=== PATIENT | male | born 1935 | race Caucasian/White ===

== ENCOUNTER → 2016-12-01 16:13 | Outpatient (CLI) | payer MEDICARE ==
[2015-08-28 12:55] VITALS: BMI 31.3
[~2016-12-01 16:13] MED LIST: ASCORBIC ACID500 MG PO; ASPIRIN EC81 M1 PO; CALCIUM 600+D T1 TA1 PO; FLOMAX0.4 MG PO; LEVAQUIN500 MG PO; MYSOLINE 50 MG50 MG PO; PRILOSEC10 MG PO; PRILOSEC20 MG PO; PROBIOTIC1 EAC1 PO; PROSCAR5 MG PO; STOOL SOFTENER100 M1 PO; VIC-FORTE CAPSUL1 MG PO
[2016-12-01 17:18] LABS: BASOPHILS 0.2 % (0-2); EOSINOPHILS 1.3 % (0-7); HEMATOCRIT 49.1 % (42.0-54.0); HEMOGLOBIN 16.6 g/dL (13.5-17.5); IMMATURE GRANULOCYTES 0.4 % (0-5); LYMPHOCYTES 14.3 % (15-50); MCH 32.2 pg (26.0-34.0); MCHC 33.8 g/dL (31.0-37.0); MCV 95.2 fL (80.0-100.0); MEAN PLATELET VOLUME 10.8 fL (7.4-10.4); MONOCYTES 11.5 % (2-11); NEUTROPHILS 72.3 % (40-80); RBC 5.16 10x6/uL (4.20-6.10); RDW 14.2 % (11.5-14.5); WBC 11.1 10x3/uL (4.8-10.8)
[2016-12-01 17:28] LABS: ALBUMIN 3.9 g/dL (3.4-5.0); ANION GAP 12.9 mmol/L (8-16); BILIRUBIN - DIRECT 0.29 mg/dL (0.00-0.30); BILIRUBIN - INDIRECT 1.36 mg/dL (0.00-1.00); BILIRUBIN - TOTAL 1.65 mg/dL (0.2-1.3); CALCIUM 9.8 mg/dL (8.5-10.1); CARBON DIOXIDE 31.1 mmol/L (21.0-32.0); CREATININE - SERUM 1.2 mg/dL (0.6-1.3); PROTEIN - SERUM 8.2 g/dL (6.4-8.2)
[2016-12-01 17:48] LABS: PLATELET COUNT 290 10x3/uL (130-400)
== END | disposition home or self-care (01) ==
LOC: D.LABREF 16:13
PROVIDERS: Nurse Practitioner Acute Care
DX: R10.13 Epigastric pain (principal); K21.0 Gastro-esophageal reflux disease with esophagitis; K57.30 Diverticulosis of large intestine without perforation or abscess without bleeding; K64.8 Other hemorrhoids; Z80.0 Family history of malignant neoplasm of digestive organs

== ENCOUNTER 2017-12-31 08:19 | Day surgery (SDC) | payer MEDICARE ==
[~2017-12-31] VITALS: Ht 190.5 cm; Wt 108.9 kg
[2017-12-31 08:38] LABS: BASOPHILS 0.1 % (0-2); EOSINOPHILS 1.9 % (0-7); HEMOGLOBIN 16.3 g/dL (13.5-17.5); IMMATURE GRANULOCYTES 0.2 % (0-5); LYMPHOCYTES 23.7 % (15-50); MCH 32.4 pg (26.0-34.0); MCHC 34.7 g/dL (31.0-37.0); MCV 93.4 fL (80.0-100.0); MEAN PLATELET VOLUME 9.6 fL (7.4-10.4); MONOCYTES 9.8 % (2-11); NEUTROPHILS 64.3 % (40-80); PLATELET COUNT 241 10x3/uL (130-400); RBC 5.03 10x6/uL (4.20-6.10); RDW 13.6 % (11.5-14.5); WBC 8.1 10x3/uL (4.8-10.8)
[2017-12-31 08:48] LABS: ANION GAP 9.2 mmol/L (8-16); CALCIUM 9.3 mg/dL (8.5-10.1); CARBON DIOXIDE 31.1 mmol/L (21.0-32.0); CREATININE - SERUM 1.1 mg/dL (0.6-1.3)
[2017-12-31 08:50] LABS: POTASSIUM - SERUM 4.3 mmol/L (3.5-5.1)
[2017-12-31 09:23] VITALS: BP 134/93; Ht 190.5 cm; Wt 108.9 kg
[2017-12-31 09:25] LABS: INR 0.99 (0.85-1.17); PROTIME 12.7 SECONDS (11.6-15.0)
[2017-12-31 09:32] LABS: ALBUMIN 3.9 g/dL (3.4-5.0); BILIRUBIN - DIRECT 0.21 mg/dL (0.00-0.30); BILIRUBIN - INDIRECT 1.33 mg/dL (0.00-1.00); BILIRUBIN - TOTAL 1.54 mg/dL (0.2-1.3); PROTEIN - SERUM 7.6 g/dL (6.4-8.2)
== END 2017-12-31 14:35 | disposition home or self-care (01) ==
LOC: D.OPS 08:19
PROVIDERS: Anesthesiology; Internal Medicine Gastroenterology
DX: K80.50 Calculus of bile duct without cholangitis or cholecystitis without obstruction (principal); Z01.812 Encounter for preprocedural laboratory examination

== ENCOUNTER 2019-06-17 09:00 | Day surgery (SDC) | payer MEDICARE ==
[2019-06-16 14:00] LABS: BASOPHILS 0.2 % (0-2); EOSINOPHILS 2.2 % (0-7); HEMATOCRIT 47.3 % (42.0-54.0); HEMOGLOBIN 15.9 g/dL (13.5-17.5); IMMATURE GRANULOCYTES 0.2 % (0-5); LYMPHOCYTES 29.8 % (15-50); MCH 31.4 pg (26.0-34.0); MCHC 33.6 g/dL (31.0-37.0); MCV 93.5 fL (80.0-100.0); MEAN PLATELET VOLUME 9.7 fL (7.4-10.4); NEUTROPHILS 58.6 % (40-80); PLATELET COUNT 257 10x3/uL (130-400); RBC 5.06 10x6/uL (4.20-6.10); RDW 13.6 % (11.5-14.5); WBC 9.4 10x3/uL (4.8-10.8)
[2019-06-16 14:05] LABS: CALC OSMOLALITY 281 mosm/kg (275-300); CALCIUM 9.7 mg/dL (8.5-10.1); CARBON DIOXIDE 28.6 mmol/L (21.0-32.0); CHLORIDE - SERUM 105 mmol/L (98-107); CREATININE - SERUM 0.9 mg/dL (0.6-1.3); GLUCOSE 101 mg/dL (74-106); POTASSIUM - SERUM 4.2 mmol/L (3.5-5.1); SODIUM 141 mmol/L (136-145); UREA NITROGEN 14 mg/dL (7-18); eGFR NON AFRICAN AMERICAN 85 mL/min (90-120)
[~2019-06-17] VITALS: Ht 190.5 cm; Wt 110.7 kg
[~2019-06-17 09:00] MED LIST changes: +CITRACAL + D E1 EACH PO; +FLUTICASONE PRO16 GM NASAL; +KENALOG 0.1 % 115 GM TOPICAL; +MYSOLINE 50 MG50 MG; -MYSOLINE 50 MG50 MG PO; +OMEPRAZOLE20 M1 PO; -PRILOSEC20 MG PO
[2019-06-17 09:33] VITALS: BP 167/91; Ht 190.5 cm; Wt 110.7 kg
--- NOTE | 2019-06-17 13:46 | NUR ---
1330 IV REMOVED WITH [facility] INTACT. ALL DC INSTRUCTIONS GIVEN. VOICES UNDERSTANDING. TAKEN OUT VIA W/C TO CAR WITH . ADVISED TO CALL OR COME BACK IF ANY PROBLEMS.
--- NOTE | 2019-06-17 15:52 | OP ---
PATIENT NAME: SERGIO SOLIS MEDICAL RECORD: [id number] :34 LOCATION:D.OPS ADMISSION DATE: SURGEON: SERGIO ROBERTS MD DATE OF OPERATION: 06/17/2019 SURGEON: Sergio Roberts MD ANESTHESIA: TIVA by David Sharp MD DIAGNOSES: Obstructive benign prostatic hyperplasia with IPSS of 16, quality of life score is 5, on finasteride and tamsulosin. PROCEDURE: UroLift times 6. FINDINGS: Bilateral long obstructive lateral lobes. No median lobe. Single ureteral orifices. Heavily trabeculated bladder with cellules. No bladder tumors. ESTIMATED BLOOD LOSS: Minimal. CLINICAL HISTORY: This is an 83-year-old male whom I first saw on 2016 for obstructive BPH and an elevated PSA. His PSA was 7.4 in May 2014. In 2012, he had a prostate biopsy by Dr. Shin of [place]. The pathology was benign. His last PSA 3.8 on 11/20/2017. He has been on finasteride and tamsulosin since 2016. He has nocturia times 3-4 with daytime urinary frequency every 1 to 2 hours. He has urge incontinence for which he uses pads. He has postvoid dribbling. IPSS score is 16 and quality of life score is 5. He wishes to have the UroLift procedure done. The patient was given IV sedation. 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 He is not allergic to any medications. DESCRIPTION OF PROCEDURE: He was placed into lithotomy position and prepped and draped. The UroLift scope was introduced and the findings are as outlined above. A 1.5 cm distal to the bladder neck at the anterolateral sulcus, one unit was placed on each side. Then, at the level of the verumontanum, one unit was placed on each side at the level of the anterolateral sulcus. Distal left tissue in the mid prostatic urethra, which caused an obstruction. In the mid prostatic urethra at the mid-height, in the anterior to posterior direction, we placed one unit on each side. This resulted in a nice wide open passage throughout the long prostatic urethra. The bladder was left partly full for a voiding trial today. I will see the patient in followup in 2 weeks' time. TRANSINT:[id number] Voice Confirmation ID: [id number] DOCUMENT ID: [id number] SERGIO ROBERTS MD at 1552 CC: [id number] DICTATION DATE: 06/17/19 1152 BOX MAKER: 06/17/19 1310 [facility] 06/17/19 [place] [id number] [place] [id number]
== END 2019-06-17 13:30 | disposition home or self-care (01) ==
LOC: D.OPS 09:00 → D.PAN 10:30 → D.OPS 10:30 → D.PAN 10:55 → D.OPS 10:55 → D.PAN 12:00 → D.OPS 13:30
PROVIDERS: Anesthesiology; ATTEND Urology
DX: N40.1 Benign prostatic hyperplasia with lower urinary tract symptoms (principal); E78.00 Pure hypercholesterolemia, unspecified; I10 Essential (primary) hypertension; K21.9 Gastro-esophageal reflux disease without esophagitis; K27.9 Peptic ulcer, site unspecified, unspecified as acute or chronic, without hemorrhage or perforation; R97.20 Elevated prostate specific antigen [PSA]